=== PATIENT | female | born 2005 | race Two or more races ===

== ENCOUNTER 2024-12-26 13:57 | Inpatient (IN) | payer BC, SELFPAY ==
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
[2024-12-26 14:28] VITALS: BP 120/75; PULSE 108; RESP 16; O2SAT 98
[2024-12-26 15:14] LABS: Amphetamines Screen Urine Negative (Negative); Barbiturates Screen Urine Negative (Negative); Benzodiazepines Screen Urine Positive (Negative); Cocaine Screen Urine Negative (Negative); Opiate Screen Urine Negative (Negative); PCP Screen Urine Negative (Negative); THC Screen Urine Positive (Negative)
[2024-12-26 15:20] LABS: Basophils % 0.3 %; Eosinophils % 0.3 %; Hematocrit 41.5 % (36-47); Lymphocytes # 2.9 10^3/uL (0.8-4.8); Mean Corpuscular HGB Conc 32.8 g/dL (30-55); Mean Corpuscular Hemoglobin 28.1 pg (27-33); Mean Corpuscular Volume 85.7 fl (85-98); Mean Platelet Volume 10.9 fL (7.4-10.4); Monocytes # 0.4 10^3/uL (0.2-0.9); Monocytes % 3.3 %; Neutrophils # 8.16 10^3/uL (1.8-7.7); Neutrophils % 70.8 %; Nucleated Red Blood Cells % 0 %; Platelet Count 356 10^3/cmm (157-399); Red Blood Count 4.84 10^6/uL (3.85-5.65); Red Cell Distribution Width 12.3 % (12.1-15.1)
[2024-12-26 15:33] LABS: HCG, Serum Qual Negative (Negative)
[2024-12-26 15:39] LABS: Alanine Aminotransferase 8 U/L (0-33); Albumin Level 4.6 g/dL (3.5-5.2); Alkaline Phosphatase 79 U/L (35-105); Aspartate Amino Transferase 13 U/L (0-32); Blood Urea Nitrogen 11 mg/dL (6-20); Calcium 9.6 mg/dL (8.5-10.5); Carbon Dioxide 18 mmol/L (22-29); Chloride 107 mmol/L (98-107); Globulin 3.1 g/dL (1.3-4.6); Glomerular Filtration Rate 105.6 mL/min (90-130); Glucose 90 mg/dL (65-115); Osmolality Calculated 287 mOsm/kg (285-295); Sodium 139 mmol/L (136-145); Total Bilirubin 0.4 mg/dL (0.15-1.2); Total Protein 7.7 g/dL (6.6-8.7)
[2024-12-26 15:42] LABS: Acetaminophen < 5.0 ug/mL (10-30); Alcohol Level < 10 mg/dL (0-10); Salicylate < 0.3 mg/dL (3-10)
[2024-12-26 15:57] VITALS: BP 114/71; PULSE 85; RESP 16; TEMP 36.8; O2SAT 100
[2024-12-26] MEDS: nicotine 2 mg Gum BUCCAL ×3 (16:45→21:15)
[2024-12-26 20:31] VITALS: BP 105/73; PULSE 86; RESP 18; TEMP 37.2; O2SAT 97
[2024-12-26] MEDS: hyDROXYzine 25 mg Capsule 50 MG PO (21:09)
[2024-12-26] MEDS: trazodone 50 mg Tablet PO (21:09)
[2024-12-27 06:00] VITALS: BP 91/56; PULSE 67; RESP 16; O2SAT 95
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
[2024-12-27] MEDS: nicotine 2 mg Gum BUCCAL ×3 (12:36→18:01)
[2024-12-27 14:00] VITALS: BP 97/64; PULSE 80; RESP 16; TEMP 37.4
[2024-12-27] MEDS: lurasidone 20 mg Tablet PO (17:54)
[2024-12-27 21:07] VITALS: BP 118/78; PULSE 101; RESP 18; TEMP 37.1; O2SAT 97
[2024-12-27] MEDS: trazodone 50 mg Tablet PO (21:07)
[2024-12-27] MEDS: hyDROXYzine 25 mg Capsule 50 MG PO (21:07)
[2024-12-28 06:00] VITALS: BP 87/58; PULSE 77; RESP 16; O2SAT 96
[2024-12-28] MEDS: nicotine 2 mg Gum BUCCAL ×5 (10:56→21:18)
[2024-12-28 14:00] VITALS: BP 120/81; PULSE 123; RESP 16; TEMP 37.4; O2SAT 95
[2024-12-28] MEDS: lurasidone 20 mg Tablet PO (16:26)
--- NOTE | 2024-12-28 18:38 | W.PM.NPUPNS ---
Subjective NPU Subjective: Patient presented today reporting that she is doing fine. She reports the medication is really helpful and slows me down if the know what I mean. She denied any side effects of the medication and reports it is providing a great sense of relief compared to how she was feeling prior to coming into the hospital. We discussed monitoring the medication and considering whether an increase is necessary prior to discharge. We discussed the likelihood of discharge on Monday if there are not any concerns. Mental Status Exam MSE Comments: This is an obese, female, in hospital scrubs, with limited grooming and eye contact. No abnormal movements, except for mild psychomotor agitation. She was mostly cooperative with exam in mild distress. Speech was somewhat increased rate and normal volume. Her mood was described as overwhelmed, her affect was somewhat expansive and energetic. Her thought process was linear. Thought content: She endorsed suicidal ideation with no plan, she denied homicidal ideation. She denied auditory or visual visual hallucinations. There were no delusions reported or noted. Reports passive wishes, not actively suicidal, but has had suicidal moments in the past. Experiences anxiety with constant worrying and a feeling of paranoia, recognizing it as not real. Intense depression with feelings of helplessness, hopelessness, and worthlessness. Difficulty sleeping. Stress from arguments with fianc? and feeling overwhelmed by emotions. Mood swings include irritability and happiness. Attention and concentration appeared grossly intact and memory is somewhat reliable, but none were formally tested. Alert and oriented times three. Insight and judgment are limited impulse control is impaired. Vitals/I&O/Wt Last Vital Signs Temp 99.3 F 12/28/24 14:00 Pulse 123 H 12/28/24 14:00 Resp 16 12/28/24 14:00 BP 120/81 12/28/24 14:00 Pulse Ox 95 12/28/24 14:00 O2 Del Method Room Air 12/28/24 14:00 Data NPU 12/26/24 14:32 12/26/24 14:32 A&P Assessment and plan (1) Suicidal ideation: (2) Depression: (3) PTSD (post-traumatic stress disorder): (4) Borderline personality disorder: (5) History of bipolar disorder: (6) Cannabis use disorder: (7) Opioid use disorder, severe, in early remission, dependence: Plan This is a 19-year-old female with a long history of trauma, addiction and psychiatric treatment on multiple medications with history of bipolar disorder diagnosis but clear presence of borderline personality disorder and PTSD. The patient presents with a history of self-injurious behavior, which is indicative of significant emotional distress. 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 The patient has been previously diagnosed with bipolar disorder, but this diagnosis may not be accurate, particularly given the early age of diagnosis and the lack of response to mood stabilizers. The symptoms may be more consistent with borderline personality disorder (BPD) rather than bipolar disorder. The patient experiences anxiety, which is likely related to PTSD, and has a history of depressive episodes characterized by feelings of helplessness, hopelessness, and worthlessness. There is also a history of passive wishes and previous suicidal ideation. 1. Started Latuda 20 mg p.o. daily. 2. Continue every 15 minute checks for safety. 3. Encourage individual, group and milieu therapy. 4. Encourage sober living treatment after discharge at the highest level care to which she is willing to commit. 5. Obtain collateral information. PDMP PDMP Reviewed: Not Reviewed Involuntary Hold Information Hold Status: Date/Time Hold Expires: voluntary Attestations NPU Medical Necessity Statement*: Inpatient hospitalization is medically necessary and the clinically appropriate intervention at this time. Will monitor/initiate medications and make changes as indicated. Likely length of stay 2-4 days. Coding Level of Care Code Acute Code for [facility] Fwd Diagnoses Suicidal ideation R45.851 Depression F33.2 Active/Remission status: currently active Depression Type: major depressive disorder Major depression episode severity: severe Major depression recurrence: recurrent Psychotic features: without psychotic features PTSD (post-traumatic stress disorder) F43.10 Borderline personality disorder F60.3 History of bipolar disorder Z86.59 Cannabis use disorder F12.90 Opioid use disorder, severe, in early remission, dependence F11.21
[2024-12-28 20:42] VITALS: BP 107/68; PULSE 96; RESP 18; TEMP 37.3; O2SAT 98
[2024-12-28] MEDS: hyDROXYzine 25 mg Capsule 50 MG PO (21:13)
[2024-12-28] MEDS: trazodone 50 mg Tablet PO (21:13)
[2024-12-29 06:00] VITALS: BP 95/59; PULSE 77; RESP 18; TEMP 36.8; O2SAT 96
[2024-12-29] MEDS: nicotine 2 mg Gum BUCCAL ×6 (06:58→20:08)
--- NOTE | 2024-12-29 09:04 | W.PM.NPUPNS ---
Subjective NPU Subjective: Patient presented today reporting that things are going fine. She reports that she has adjusted to the Latuda without difficulty and is feeling optimistic about discharging tomorrow. We discussed working with the social work team and getting her appropriate follow-up appointments. She denied any side effects to the medication. Mental Status Exam MSE Comments: This is an obese, female, in hospital scrubs, with limited grooming and eye contact. No abnormal movements, except for mild psychomotor agitation. She was mostly cooperative with exam in mild distress. Speech was somewhat increased rate and normal volume. Her mood was described as overwhelmed, her affect was somewhat expansive and energetic. Her thought process was linear. Thought content: She denied suicidal or homicidal ideation. She denied auditory or visual visual hallucinations. Attention and concentration appeared grossly intact and memory is somewhat reliable, but none were formally tested. Alert and oriented times three. Insight and judgment are limited, but improving impulse control is improving. Vitals/I&O/Wt Last Vital Signs Temp 98.3 F 12/29/24 06:00 Pulse 77 12/29/24 06:00 Resp 18 12/29/24 06:00 BP 95/59 12/29/24 06:00 Pulse Ox 96 12/29/24 06:00 O2 Del Method Room Air 12/28/24 14:00 Weight last 48 hrs Weight 84.459 kg Data NPU 12/26/24 14:32 12/26/24 14:32 A&P Assessment and plan (1) Suicidal ideation: (2) Depression: (3) PTSD (post-traumatic stress disorder): (4) Borderline personality disorder: (5) History of bipolar disorder: (6) Cannabis use disorder: (7) Opioid use disorder, severe, in early remission, dependence: Plan This is a 19-year-old female with a long history of trauma, addiction and psychiatric treatment on multiple medications with history of bipolar disorder diagnosis but clear presence of borderline personality disorder and PTSD. The patient presents with a history of self-injurious behavior, which is indicative of significant emotional distress. 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 The patient has been previously diagnosed with bipolar disorder, but this diagnosis may not be accurate, particularly given the early age of diagnosis and the lack of response to mood stabilizers. The symptoms may be more consistent with borderline personality disorder (BPD) rather than bipolar disorder. The patient experiences anxiety, which is likely related to PTSD, and has a history of depressive episodes characterized by feelings of helplessness, hopelessness, and worthlessness. There is also a history of passive wishes and previous suicidal ideation. 1. Started Latuda 20 mg p.o. daily. We will consider increasing to 40 mg but likely will discharge on the 20 mg tomorrow. 2. Continue every 15 minute checks for safety. 3. Encourage individual, group and milieu therapy. 4. Encourage sober living treatment after discharge at the highest level care to which she is willing to commit. 5. Obtain collateral information. PDMP PDMP Reviewed: Not Reviewed Involuntary Hold Information Hold Status: Date/Time Hold Expires: voluntary Attestations NPU Medical Necessity Statement*: Inpatient hospitalization is medically necessary and the clinically appropriate intervention at this time. Will monitor/initiate medications and make changes as indicated. Likely length of stay 1-3 days. Coding Level of Care Code Acute Code for [facility] Fwd Diagnoses Suicidal ideation R45.851 Depression F33.2 Active/Remission status: currently active Depression Type: major depressive disorder Major depression episode severity: severe Major depression recurrence: recurrent Psychotic features: without psychotic features PTSD (post-traumatic stress disorder) F43.10 Borderline personality disorder F60.3 History of bipolar disorder Z86.59 Cannabis use disorder F12.90 Opioid use disorder, severe, in early remission, dependence F11.21
[2024-12-29] MEDS: hyDROXYzine 25 mg Capsule 50 MG PO ×2 (12:25→20:04)
[2024-12-29 14:00] VITALS: BP 108/72; PULSE 85; RESP 17; TEMP 37.3; O2SAT 97
[2024-12-29] MEDS: lurasidone 20 mg Tablet PO (16:17)
[2024-12-29] MEDS: trazodone 50 mg Tablet PO ×2 (20:04→22:21)
[2024-12-29 20:49] VITALS: BP 106/69; PULSE 79; RESP 18; TEMP 37.2; O2SAT 99
[2024-12-29] MEDS: OLANZapine 5 mg ODT PO (22:21)
[2024-12-30 06:00] VITALS: BP 87/51; PULSE 75; RESP 16; O2SAT 94
[2024-12-30 11:12] VITALS: BP 87/51; PULSE 75; RESP 16; TEMP 37.2; O2SAT 94
== END 2024-12-30 12:47 | disposition home or self-care (01) | DRG 883 ==
LOC: ER 14:38 → NP 14:45
PROVIDERS: Admitting Provider Psychiatry & Neurology Psychiatry; Emergency Provider Physician Assistant; Visit Provider Psychiatry & Neurology Psychiatry
DX: F60.3 Borderline personality disorder (principal); R45.851 Suicidal ideations; F41.9 Anxiety disorder, unspecified; F43.10 Post-traumatic stress disorder, unspecified; F11.21 Opioid dependence, in remission; Z91.51 Personal history of suicidal behavior; F40.10 Social phobia, unspecified; F17.210 Nicotine dependence, cigarettes, uncomplicated; E66.9 Obesity, unspecified; Z68.30 Body mass index [BMI] 30.0-30.9, adult; F32.A Depression, unspecified
CPT/HCPCS: 36415; 80053; 80306; 80307; 84703; 85025; 97150; 97165; 99285; J9999